=== PATIENT | male | born 1950 | race Caucasian/White ===

== ENCOUNTER → 2019-05-18 09:37 | Outpatient (CLI) | payer MEDICARE, OTHER, SELFPAY ==
[2019-05-18 10:34] LABS: Add Manual Diff / Slide Review NO; Basophils Absolute Auto 0 /uL (0-100); Basophils Percent Auto 0.8 % (0-2); Eosinophils Absolute Auto 300 /uL (0-450); Eosinophils Percent Auto 5.6 % (2-4); Hematocrit 42.4 % (41-53); Hemoglobin 14.3 g/dL (13.5-17.5); Lymphocytes Absolute Auto 1200 /uL (1100-4500); Lymphocytes Percent Auto 24.8 % (25-40); Mean Corpuscular HGB Conc 33.8 % (30-36); Mean Corpuscular Hemoglobin 27.5 PG (26-34); Mean Corpuscular Volume 81.3 fL (80-100); Monocytes Absolute Auto 500 /uL (0-900); Monocytes Percent Auto 9.9 % (3-14); Neutrophils Absolute Auto 2800 /uL (1500-7000); Neutrophils Percent Auto 58.9 % (50-75); Platelet Count 176 X10^3/uL (150-400); Red Blood Cell Count 5.22 X10^6/uL (4.5-5.9); Red Cell Distribution Width 15.4 % (11.6-14.8); White Blood Cell Count 4.8 X10^3/uL (4.5-11.0)
[2019-05-18 11:03] LABS: Alanine Aminotransferase 24 IU/L (<50); Albumin 4.2 g/dL (3.5-5.0); Albumin Globulin Ratio 1.4 (1.0-2.8); Alkaline Phosphatase 81 U/L (38-126); Aspartate Aminotransferase 25 IU/L (17-59); Bilirubin Total 0.8 mg/dL (0.2-1.3); Blood Urea Nitrogen 19 mg/dL (9-20); Calcium 9.4 mg/dL (8.4-10.2); Carbon Dioxide 31 mmol/L (22-32); Chloride 104 mmol/L (98-107); Cholesterol 161 mg/dL (140-199); Estimated Glomerular Filt Rate > 60.0 mL/min (>60); Globulin 3.1 g/dL (1.7-4.1); Glucose 102 mg/dL (80-110); HDL Cholesterol 41 mg/dL (40-60); HEMOLYSIS < 15 (0-50); LDL Cholesterol Calculated 90 mg/dL (<100); Potassium 5.2 mmol/L (3.4-5.1); Sodium 141 mmol/L (137-145); Total Protein 7.3 g/dL (6.3-8.2); Triglycerides 152 mg/dL (35-150)
[2019-05-18 11:31] LABS: Prostate Specific Antigen Scrn 0.478 ng/mL (0.1-4.0)
[2019-05-18 11:32] LABS: TSH w/ Reflex to FT4 3.77 uIU/mL (0.47-4.68)
== END ==
PROVIDERS: PCP Family Medicine; Visit Provider Family Medicine
DX: R94.6 Abnormal results of thyroid function studies (principal); Z12.5 Encounter for screening for malignant neoplasm of prostate; Z79.899 Other long term (current) drug therapy; E66.9 Obesity, unspecified
CPT/HCPCS: 36415; 80053; 80061; 84443; 85025; G0103

== ENCOUNTER → 2020-01-01 09:28 | Outpatient (CLI) | payer MEDICARE, OTHER, SELFPAY ==
[2020-01-02 07:39] LABS: COVID19 Sendout Not Detected (Not Detect)
== END ==
PROVIDERS: PCP Family Medicine; Visit Provider Nurse Practitioner
DX: Z11.59 Encounter for screening for other viral diseases (principal)
CPT/HCPCS: 87635

== ENCOUNTER 2020-01-04 06:37 | Day surgery (SDC) | payer MEDICARE, OTHER, SELFPAY ==
[2020-01-04 07:15] VITALS: BP 148/85; PULSE 65; RESP 16; TEMP 37; O2SAT 95
[2020-01-04 07:27] VITALS: BMI 35.9
[2020-01-04] MEDS: LACTATED RINGERS 1,000 ML 200 ML IV (07:27)
--- NOTE | 2020-01-04 07:38 | PM.HP.1 ---
History of Present Illness History of Present Illness Date Patient Seen: 01/04/20 Time Patient Seen: 07:38 Chief complaint: SDC Narrative: This is a 69-year-old man with personal history of colonoscopy over 10 years ago. For him the colonoscopy was normal. Some since then he has not had any melena, hematochezia, unexplained abdominal pain, unexplained weight loss. He denies any family history of colon polyps or colon cancer. He denies any other significant medical history. He does have an enlarged prostate, urinary frequency/urgency, seasonal allergies, and hyperlipidemia. He is on Lipitor. He has had multiple orthopedic procedures, and it hurt. He denies any other medical or surgical history. ROS: Urinary frequency/urgency. Thirteen system review is otherwise negative other than as mentioned below and in HPI. PE: GENERAL: Well groomed and cooperative. Appears stated age. Answers questions promptly and appropriately. Vital signs noted. HENT: Normocephalic, atraumatic. Hearing intact. EYES: Conjunctiva pink, sclera white, no periorbital swelling. CARDIOVASCULAR: Regular rate. No pedal edema. RESPIRATORY: Non-tachypneic, breathing comfortably on room air. GASTROINTESTINAL: Abdomen soft and non-distended GENITALURINARY: No flank tenderness. MUSCULOSKELETAL: Equal tone and mass bilaterally. SKIN: Warm, dry, soft, appropriate color for ethnicity. No other lesions, rashes, or wounds. NEURO: Alert and Oriented X 3. No gross sensory deficits, or cognitive issues. PSYCH: Appropriate affect and mood. Patient History Medical History Hyperlipidemia (Chronic) Insomnia, unspecified (Chronic Unknown) Obesity (Chronic Unknown) Obstructive sleep apnea of adult (Chronic ~04/2018) Sinusitis (Acute) Snoring (Chronic ~1976) Surgical History History of transurethral resection of prostate (Acute) Status post knee surgery Family & Social History Family History Brother Heart disease High cholesterol Father Heart disease High cholesterol Sister Heart disease High cholesterol Social History: household members spouse lives independently Yes caregiver/support person No Tobacco & Substance use: Smoking Status Never smoker alcohol intake former Substance Use Type does not use Meds Home Medications and Allergies Home Medications Medication Instructions Recorded Confirmed Type aspirin 81 mg tablet,delayed 81 mg PO DAILY 04/27/18 01/04/20 History release atorvastatin 40 mg tablet 40 mg PO HS #90 tab 05/29/19 01/04/20 Rx fluoxetine 20 mg capsule 20 mg PO QDAY #90 cap 05/29/19 01/04/20 Rx amoxicillin 875 mg-potassium 1 tab PO BID 10 Days #20 tab 12/26/19 01/04/20 Rx clavulanate 125 mg tablet fluticasone propionate 50 2 spray NASAL DAILY #18.2 ml 12/26/19 01/04/20 Rx mcg/actuation nasal spray,suspension Allergies Allergy/AdvReac Type Severity Reaction Status Date / Time No Known Drug Allergies Allergy Verified 12/26/19 15:40 Exam Vital Signs (past 8 hours): - 01/04/20 07:15 Temperature 98.6 F Pulse Rate 65 Respiratory Rate 16 Blood Pressure 148/85 H Pulse Oximetry 95 Oxygen Delivery Method Room Air Assessment & Plan Assessment and plan (1) At average risk for colon cancer: Status: Acute Assessment & Plan narrative: Risks and benefits of screening colonoscopy and possible polypectomy were discussed with the patient including risk of bleeding, perforation, need for additional procedures, risks of anesthesia. The patient desires to proceed with the colonoscopy procedure. COVID-19 COVID-19 status: Negative Result date/Date tested (Pos, Neg/Pending): 01/01/20 Time Spent With Patient Time with patient: 15-24 minutes Quality VTE Deep Vein Thrombosis/Pulmonary Embolism Present on Admission: No
--- NOTE | 2020-01-04 07:43 | P.OP.ENDO_ITS ---
Operative Date/Time/Diagnoses Date of procedure: 01/04/20 Time of procedure: 07:43 Pre-op diagnosis: Average risk for colon cancer Post-op diagnosis: other (Significant diverticulosis of the descending and sigmoid colon.) Procedure & Clinicians Study performed: Colonoscopy Procedural sedation performed by the endoscopist Indications: 69-year-old man with history of colonoscopy over 10 years ago which was reportedly normal. Due for screening colonoscopy. Surgeon: Birgit Peralta Procedure Notes SCOAP/Timeout: Performed Procedure in detail: The patient was brought to the room and placed in left lateral decubitus position with all bony prominences padded. A time-out was performed and then the patient was given procedural sedation starting with 4 mg of Versed and 100 mcg of fentanyl. A total of 5 mg of Versed and 150 micro g of fentanyl were given for the entire procedure. Vitals were monitored throughout the procedure and remained stable. Once adequately sedated, the procedure was begun. A rectal exam was performed revealing no abnormalities. The colonoscope was then introduced to the rectum and advanced to the cecum in the usual fashion. The cecum was identified by the appendiceal orifice, the mucosal tri- fold, and the ileocecal valve. The scope was then retracted while rotating side to side and examining each mucosal fold. Extensive diverticulosis with multiple false passages was seen in the descending and sigmoid colon. No signs of active diverticulitis were seen. At the conclusion of the procedure retroflexion was performed and small grade 1-2 internal hemorrhoids without stigmata of bleeding were seen. The scope was then withdrawn from the rectum the procedure was concluded. The patient tolerated the procedure well and was transferred to the PACU in stable condition. Scope withdrawal time: 8 Sedation minutes: 14 Findings: diverticulosis Specimen(s): none sent Complications: none Impression: Extensive diverticulosis. No polyps. Post-procedure Recommendations: Colonscopy in 10 years and Other recommendation (Use a fiber supplement such as Metamucil) Follow up: weeks Disposition: PACU
[2020-01-04] MEDS: MIDAZOLAM 5 MG/5 ML VIAL IV (07:46)
[2020-01-04] MEDS: fentaNYL 250 MCG/5 ML INJ IV (07:46)
[2020-01-04 08:08] VITALS: BP 121/63; PULSE 67; RESP 20; TEMP 35.9; O2SAT 95
[2020-01-04 08:12] VITALS: BP 132/80; PULSE 62; RESP 19; TEMP 36.1; O2SAT 93
[2020-01-04 08:17] VITALS: BP 137/73; PULSE 63; RESP 12; TEMP 36.1; O2SAT 94
[2020-01-04 08:22] VITALS: BP 135/65; PULSE 64; RESP 17; TEMP 36.1; O2SAT 94
[2020-01-04 08:39] VITALS: BP 139/78; PULSE 61; RESP 18; TEMP 35.9; O2SAT 93
== END 2020-01-04 08:42 | disposition home or self-care (01) ==
PROVIDERS: PCP Family Medicine; Referring Provider Family Medicine; Visit Provider Surgery
PROC: 0DJD8ZZ Inspection of Lower Intestinal Tract, Via Natural or Artificial Opening Endoscopic (ICD-10-PCS; CPT 45378; principal; 2020-01-04 07:45)
DX: Z12.11 Encounter for screening for malignant neoplasm of colon (principal); E78.5 Hyperlipidemia, unspecified; G47.33 Obstructive sleep apnea (adult) (pediatric); E66.9 Obesity, unspecified; N40.1 Benign prostatic hyperplasia with lower urinary tract symptoms; R35.0 Frequency of micturition; R39.15 Urgency of urination; K57.30 Diverticulosis of large intestine without perforation or abscess without bleeding; K64.0 First degree hemorrhoids
CPT/HCPCS: G0121; 99152; J2250; J3010

== ENCOUNTER → 2020-05-28 09:09 | Outpatient (CLI) | payer MEDICARE, OTHER, SELFPAY ==
[2020-05-28 10:22] LABS: Alanine Aminotransferase 29 IU/L (<50); Albumin 3.9 g/dL (3.5-5.0); Albumin Globulin Ratio 1.5 (1.0-2.8); Alkaline Phosphatase 71 U/L (38-126); Aspartate Aminotransferase 29 IU/L (17-59); BUN Creatinine Ratio 15.5 (6-22); Bilirubin Total 0.6 mg/dL (0.2-1.3); Blood Urea Nitrogen 13 mg/dL (9-20); Calcium 9.6 mg/dL (8.4-10.2); Carbon Dioxide 29 mmol/L (22-32); Chloride 106 mmol/L (98-107); Cholesterol 153 mg/dL (140-199); Estimated Glomerular Filt Rate > 60.0 mL/min (>60); Globulin 2.6 g/dL (1.7-4.1); Glucose 110 mg/dL (80-110); HDL Cholesterol 50 mg/dL (40-60); HEMOLYSIS < 15 (0-50); LDL Cholesterol Calculated 86 mg/dL (<100); Potassium 4.4 mmol/L (3.4-5.1); Sodium 139 mmol/L (137-145); Total Protein 6.5 g/dL (6.3-8.2); Triglycerides 85 mg/dL (35-150)
[2020-05-28 10:52] LABS: Prostate Specific Antigen Scrn 0.405 ng/mL (0.1-4.0)
== END ==
PROVIDERS: PCP Family Medicine; Referring Provider Family Medicine; Visit Provider Family Medicine
DX: E78.2 Mixed hyperlipidemia (principal); Z12.5 Encounter for screening for malignant neoplasm of prostate; E87.5 Hyperkalemia; N40.0 Benign prostatic hyperplasia without lower urinary tract symptoms
CPT/HCPCS: 36415; 80053; 80061; G0103

== ENCOUNTER → 2020-07-07 08:34 | Outpatient (CLI) | payer MEDICARE, OTHER, SELFPAY ==
[2020-07-07] MEDS: COVID-19 VACC, Ad26(JANSSEN)/PF 0.5 ML IM (08:41)
== END ==
PROVIDERS: PCP Family Medicine; Visit Provider Internal Medicine
DX: Z23 Encounter for immunization (principal)
CPT/HCPCS: 0031A; 91303

== ENCOUNTER → 2020-09-29 10:35 | Outpatient (CLI) | payer MEDICARE, OTHER, SELFPAY ==
--- NOTE | 2020-09-29 10:38 | DI.RAD.S_ITS ---
PROCEDURE: XR LUMBAR SPINE 2-3V INDICATIONS: Low back pain TECHNIQUE: 3 views of the lumbar spine were acquired. COMPARISON: None. FINDINGS: Bones: 5 [id number] vertebrae are present. There is normal bony alignment. No vertebral body compression fractures. No suspicious bony lesions. Mild leftward curvature of the thoracolumbar spine. Multiple anterior osteophytes are seen. Mild disc space narrowing at L5-S1. The remaining disc space heights are normal. Soft tissues: Overlying bowel gas pattern is normal. No suspicious soft tissue calcifications. IMPRESSION: 1. Mild multilevel degenerative changes. 2. Mild disc disease at L5-S1. Dictated by: Daniel Ferreira M.D. on 09/29/2020 at 11:47 Approved by: Daniel Ferreira M.D. on 09/29/2020 at 11:49
== END ==
PROVIDERS: PCP Family Medicine; Referring Provider Family Medicine; Visit Provider Family Medicine
DX: M54.5 Low back pain (principal); G89.29 Other chronic pain; M47.816 Spondylosis without myelopathy or radiculopathy, lumbar region; M51.9 Unspecified thoracic, thoracolumbar and lumbosacral intervertebral disc disorder
CPT/HCPCS: 72100

== ENCOUNTER → 2020-12-17 08:29 | Outpatient (CLI) | payer MEDICARE, OTHER, SELFPAY ==
[2020-12-17 11:59] LABS: COVID19 -Nasal RAPID POSITIVE (Negative)
== END ==
PROVIDERS: PCP Family Medicine; Visit Provider Physician Assistant
DX: U07.1 COVID-19 (principal)
CPT/HCPCS: 87635

== ENCOUNTER → 2021-01-06 09:10 | Outpatient (CLI) | payer MEDICARE, OTHER, SELFPAY ==
--- NOTE | 2021-01-06 09:12 | DI.US.S_ITS ---
PROCEDURE: US PERIPH VENOUS LOW EXTREM RT INDICATIONS: right upper leg pain TECHNIQUE: Real-time imaging, as well as color and pulse Doppler interrogation, were performed of the lower extremity deep veins from the inguinal ligament to the popliteal fossa. COMPARISON: None. FINDINGS: The common femoral, femoral and popliteal veins are normally compressible, and free of intraluminal thrombus. Color and pulse Doppler demonstrate normal phasic intraluminal flow. There is normal augmentation response to distal compression maneuver. Within the mid popliteal vein, is focal aneurysmal dilatation seen that measures 16 mm AP. IMPRESSION: Negative for deep venous thrombosis. 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 Dictated by: Aric Cottrell M.D. on 01/06/2021 at 9:01 Approved by: Aric Cottrell M.D. on 01/06/2021 at 9:02
== END ==
PROVIDERS: PCP Family Medicine; Referring Provider Nurse Practitioner Family; Visit Provider Nurse Practitioner Family
DX: M79.604 Pain in right leg (principal); I83.91 Asymptomatic varicose veins of right lower extremity
CPT/HCPCS: 93971

== ENCOUNTER 2021-01-08 10:54 | Emergency (ER) | payer MEDICARE, OTHER, SELFPAY ==
[2021-01-08] VITALS (15 sets, daily range): BP systolic 160–202; BP diastolic 72–88; PULSE 50–58; RESP 18; TEMP 36.4; O2SAT 95–97; BMI 35.9
--- NOTE | 2021-01-08 12:15 | DI.US.S_ITS ---
PROCEDURE: US PERIP VENOUS LOW EXTREM RT INDICATIONS: proximal right LE pain, popliteal vein aneurysm known TECHNIQUE: Real-time imaging, as well as color and pulse Doppler interrogation, were performed of the lower extremity deep veins from the inguinal ligament to the popliteal fossa. COMPARISON: [facility], , [facility] VENOUS LOW EXTREM RT, 01/06/2021, 9:41. FINDINGS: The common femoral, femoral and popliteal veins are normally compressible, and free of intraluminal thrombus. Color and pulse Doppler demonstrate normal phasic intraluminal flow. There is normal augmentation response to distal compression maneuver. Focal mild dilatation can be seen involving the popliteal vein, which is most likely related to a valve cusp. This appearance is similar to the prior examination. IMPRESSION: Negative for deep venous thrombosis. Dictated by: Aric Cottrell M.D. on 01/08/2021 at 12:04 Approved by: Aric Cottrell M.D. on 01/08/2021 at 12:05
--- NOTE | 2021-01-08 13:06 | ED.EXTPRO ---
HPI - Extremity Problem <Bayron Lund PA-C - Last Filed: 01/08/21 14:45> General Chief complaint: Extremity Problem,Nontraumatic Stated complaint: rt leg pain, got worse yesterday Time Seen by Provider: 01/08/21 11:24 Source: patient Mode of arrival: Ambulatory History of Present Illness HPI Narrative: Robby presents today with chief complaint of continued right upper leg pain that originally started at the beginning of this week. He reports that he has had continuous pain to his right upper leg that has prevented him from getting much sleep at night. He went to the walk-in clinic on Tuesday and an ultrasound was done. 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 Stat vascular consult was done and he was recommended to follow-up with an outpatient vascular surgeon. He has an appointment scheduled in February for his vascular surgeon follow-up. He denies any significant worsening of his symptoms, leg swelling, skin discoloration, chest pain, shortness of breath or any other acute concerns or complaints at this time. Ice And ibuprofen seem to give slight relief. Pain is worse with walking and moving his leg inward. Related Data Home Medications Medication Instructions Recorded Confirmed aspirin 81 mg tablet,delayed 81 mg PO DAILY 04/27/18 01/06/21 release (Adult Low Dose Aspirin) Previous Rx's Medication Instructions Recorded fluticasone propionate 50 2 spray NASAL DAILY #18.2 ml 12/26/19 mcg/actuation nasal spray,suspension (Flonase Allergy Relief) fluoxetine 20 mg capsule 20 mg PO QDAY #90 cap 07/23/20 atorvastatin 40 mg tablet See Rx Instructions .ROUTE 11/14/20 .COMPLEX #90 tab methocarbamol 500 mg tablet 500 mg PO BID #15 tab 01/08/21 hydrocodone 5 mg-acetaminophen 325 1 tab PO Q8H PRN #14 tab 01/10/21 mg tablet Allergies Allergy/AdvReac Type Severity Reaction Status Date / Time No Known Drug Allergies Allergy Verified 01/06/21 08:32 Review of Systems <Bayron Lund PA-C - Last Filed: 01/08/21 14:45> Review of Systems Narrative: As per HPI Patient History <Bayron Lund PA-C - Last Filed: 01/08/21 14:45> Medical History Chronic low back pain Hyperkalemia Hyperlipidemia Insomnia, unspecified (Unknown) Obesity (Unknown) Obstructive sleep apnea of adult (~04/2018) Sinusitis Snoring (~1976) Surgical History History of transurethral resection of prostate Status post knee surgery Family History Brother Heart disease High cholesterol Father Heart disease High cholesterol Sister Heart disease High cholesterol Social History marital status: details: to Tammie, lives in [place] household members: spouse lives independently: Yes caregiver/support person: No housing: house Smoking Status: Never smoker alcohol intake: former substance use type: does not use Smoking Status: Never smoker Substance Use Type: does not use Exam <Bayron Lund PA-C - Last Filed: 01/08/21 14:45> Narrative Exam Narrative: Exam Narrative: Const General: cooperative, healthy appearing, comfortable, no acute distress, well developed and well groomed Nutritional Appearance: Elevated BMI Orientation: alert and oriented x3 HENMT Head: normal to inspection and atraumatic Ears: hearing grossly normal bilaterally Nose: external nose normal and nares normal Face and sinus: normal facial exam Neck Neck: normal visual inspection and supple Resp Effort & Inspection: normal respiratory effort, able to speak in complete sentences, no audible wheezes, not labored, no nasal flaring and no respiratory distress Neuro General: alert, oriented x3, gait normal, tone normal and moves all extremities Cognition: normal cognition Speech: speech normal Gait: normal gait Extremities Lower extremities exposed. No pedal edema or calf tenderness. He has soft tissue tenderness on the proximal medial right leg with palpation. No overlying skin abnormalities. Decreased strength with abduction of right leg secondary to pain. Decreased range of motion of lateral movement of right leg at the hip secondary to pain. No bony tenderness noted. Psych Appearance: grossly normal and well kempt Mental Status: mental status grossly normal Speech and Movement: speech and movement normal Mood: congruent mood Affect: normal affect Initial Vital Signs Initial Vital Signs: Vital Signs Blood Pressure 202/86 H 01/08/21 11:18 <Kiera Sanchez DO - Last Filed: 01/11/21 15:27> Initial Vital Signs Initial Vital Signs: Vital Signs Blood Pressure 202/86 H 01/08/21 11:18 Scores <Bayron Lund PA-C - Last Filed: 01/08/21 14:45> Parth Criteria for DVT Active Cancer (Treatment within 6 months): No Bedridden recently >3 days or major surgery within 4 weeks: No Calf Swelling >3cm compared to other leg: No Collateral (nonvericose) superficial veins present: No Entire leg swollen: No Localized tenderness along the deep vein system: Yes Pitting edema, confined to symtomatic leg: No Paralysis, paresis, or recent plaster immobilization of ext: No Previously documented DVT: No Alternative dx to DVT as likely or more likely: Yes Parth criteria for DVT: -1 <Kiera Sanchez DO - Last Filed: 01/11/21 15:27> Parth Criteria for DVT Isrrael' criteria for DVT: -1 Course <VIRA Rosales Last Filed: 01/08/21 14:45> Orders Ordered: ED Orders 01/08/21 12:15 US periph venous low extrem rt Stat Vital Signs Vital signs: Vital Signs - 8 hr 01/08/21 11:18 01/08/21 11:19 01/08/21 11:21 Temperature 97.6 F Pulse Rate 53 L 58 L Respiratory Rate 18 Blood Pressure 202/86 H 202/86 H Pulse Oximetry 97 97 01/08/21 11:30 01/08/21 11:31 01/08/21 12:00 Temperature Pulse Rate 56 L 54 L 51 L Respiratory Rate Blood Pressure 193/79 H Pulse Oximetry 96 96 95 01/08/21 12:01 01/08/21 12:30 01/08/21 12:31 Temperature Pulse Rate 51 L 50 L 51 L Respiratory Rate Blood Pressure 161/72 H 179/88 H Pulse Oximetry 95 96 96 01/08/21 13:00 01/08/21 13:01 01/08/21 13:30 Temperature Pulse Rate 53 L 52 L 52 L Respiratory Rate Blood Pressure 173/82 H Pulse Oximetry 96 95 96 01/08/21 13:31 01/08/21 14:00 01/08/21 14:01 Temperature Pulse Rate 53 L 58 L 58 L Respiratory Rate Blood Pressure 160/76 H 162/74 H Pulse Oximetry 95 96 96 <Kiera Elisa MurphyayushDO - Last Filed: 01/11/21 15:27> Orders Ordered: ED Orders 01/08/21 12:15 US periph venous low extrem rt Stat Vital Signs Vital signs: Vital Signs - 8 hr 01/08/21 11:18 01/08/21 11:19 01/08/21 11:21 Temperature 97.6 F Pulse Rate 53 L 58 L Respiratory Rate 18 Blood Pressure 202/86 H 202/86 H Pulse Oximetry 97 97 01/08/21 11:30 01/08/21 11:31 01/08/21 12:00 Temperature Pulse Rate 56 L 54 L 51 L Respiratory Rate Blood Pressure 193/79 H Pulse Oximetry 96 96 95 01/08/21 12:01 01/08/21 12:30 01/08/21 12:31 Temperature Pulse Rate 51 L 50 L 51 L Respiratory Rate Blood Pressure 161/72 H 179/88 H Pulse Oximetry 95 96 96 01/08/21 13:00 01/08/21 13:01 01/08/21 13:30 Temperature Pulse Rate 53 L 52 L 52 L Respiratory Rate Blood Pressure 173/82 H Pulse Oximetry 96 95 96 01/08/21 13:31 01/08/21 14:00 01/08/21 14:01 Temperature Pulse Rate 53 L 58 L 58 L Respiratory Rate Blood Pressure 160/76 H 162/74 H Pulse Oximetry 95 96 96 MDM - Extremity (Nontraumatic) <Bayron Lund PA-C - Last Filed: 01/08/21 14:45> MDM Narrative Medical decision making narrative: Differential diagnosis includes vascular aneurysm, infection, DVT, muscle strain, neoplasm. No physical examination evidence to suggest infection. He does not have any palpable masses nor history of cancer to suggest neoplasm at this time. No bony tenderness. Ultrasound is reassuring for no DVT or aneurysm. He has strong pedal pulses bilaterally with good skin coloration. No physical exam evidence of arterial injury. Given his reproducible symptoms on leg adduction as well as abduction I suspect that his symptoms are due to a spasm/strain of 1 of his hip adductors. Stretching activities were discussed and recommended to the patient. He is encouraged to call his PCP today to schedule a follow-up appointment. Strict ER return precautions were discussed. Patient verbalizes understanding and agrees to plan and has no further concerns at this time. Thank you A [id number] system was used with the dictation of this note. Please disregard any spelling or grammatical errors. Discharge Plan Departure Patient Disposition: Home Clinical Impression: Acute pain of right lower extremity Activity Restrictions/Additional Instructions: It was very nice to me to this afternoon. The ultrasound done today suggest that the prior area that showed a possible venous aneurysm is actually slightly dilated valve in the popliteal vein. Given that your symptoms are worse with moving year leg laterally and the location of your symptoms, I think that this likely is a muscle spasm/strain. I would like you to apply heat to this area in addition to stretching. Please follow-up with your doctor by calling them today to schedule an appointment. I will prescribe some muscle relaxers which can be used in the evening to help relieve symptoms. You experience significant worsening pain, discoloration of your leg, fever, rash or any other acute concerns or complaints do not hesitate to return for re-evaluation. Thank you Bayron Lund PA-C Prescriptions: New methocarbamol 500 mg tablet 500 mg PO BID Qty: 15 RF: 0 No Action fluticasone propionate [Flonase Allergy Relief] 50 mcg/actuation spray,suspension 2 spray NASAL DAILY Qty: 18.2 RF: 0 fluoxetine 20 mg capsule 20 mg PO QDAY Qty: 90 RF: 3 atorvastatin 40 mg tablet See Rx Instructions .ROUTE .COMPLEX Qty: 90 RF: 0 hydrocodone-acetaminophen 5-325 mg tablet 1 tab PO Q8H PRN (Reason: pain) Qty: 14 RF: 0 aspirin [Adult Low Dose Aspirin] 81 mg tablet,delayed release (DR/EC) 81 mg PO DAILY RF: 0 Referrals: Shawn Recinos MD [Primary Care Provider] - <Kiera Sanchez DO - Last Filed: 01/11/21 15:27> Cosign ED Attending Fernandoature Attestation: I was immediately available in the department for consultation. Documentation has been reviewed.
== END 2021-01-08 14:29 | disposition home or self-care (01) ==
PROVIDERS: Emergency Provider Physician Assistant; PCP Family Medicine
DX: M79.604 Pain in right leg (principal)
CPT/HCPCS: 93971; 99283

== ENCOUNTER 2021-01-10 06:31 | Emergency (ER) | payer MEDICARE, OTHER, SELFPAY ==
[2021-01-10 06:38] VITALS: BP 228/106; PULSE 59; RESP 18; TEMP 36.3; O2SAT 98; BMI 35.9
[2021-01-10 07:01] VITALS: BP 178/85; PULSE 58; RESP 16; O2SAT 96
[2021-01-10 07:02] VITALS: PULSE 56; O2SAT 96
[2021-01-10 07:12] LABS: Add Manual Diff / Slide Review NO; Basophils Absolute Auto 0 /uL (0-100); Basophils Percent Auto 0.6 % (0-2); Eosinophils Absolute Auto 200 /uL (0-450); Hematocrit 40.2 % (41-53); Hemoglobin 13.3 g/dL (13.5-17.5); Lymphocytes Absolute Auto 1300 /uL (1100-4500); Lymphocytes Percent Auto 25.2 % (25-40); Mean Corpuscular HGB Conc 32.9 % (30-36); Mean Corpuscular Hemoglobin 27.1 PG (26-34); Mean Corpuscular Volume 82.2 fL (80-100); Monocytes Absolute Auto 500 /uL (0-900); Neutrophils Absolute Auto 3100 /uL (1500-7000); Neutrophils Percent Auto 60.2 % (50-75); Platelet Count 190 X10^3/uL (150-400); Red Blood Cell Count 4.89 X10^6/uL (4.5-5.9); Red Cell Distribution Width 15.6 % (11.6-14.8); White Blood Cell Count 5.2 X10^3/uL (4.5-11.0)
[2021-01-10 07:23] LABS: INR 1.1 (0.9-1.3); Prothrombin Time 12.6 SECONDS (10.1-12.7)
[2021-01-10 07:25] LABS: PTT Partial Thromboplastin Tim 34 SECONDS (26.4-36.2)
[2021-01-10 07:30] VITALS: PULSE 58; O2SAT 96
[2021-01-10 07:31] VITALS: BP 178/85; PULSE 59; O2SAT 96
[2021-01-10 07:38] LABS: Alanine Aminotransferase 27 IU/L (<50); Albumin 4.1 g/dL (3.5-5.0); Albumin Globulin Ratio 1.4 (1.0-2.8); Alkaline Phosphatase 75 U/L (38-126); Aspartate Aminotransferase 27 IU/L (17-59); BUN Creatinine Ratio 22.4 (6-22); Bilirubin Total 0.8 mg/dL (0.2-1.3); Blood Urea Nitrogen 19 mg/dL (9-20); Calcium 9.1 mg/dL (8.4-10.2); Carbon Dioxide 31 mmol/L (22-32); Chloride 106 mmol/L (98-107); Estimated Glomerular Filt Rate > 60.0 mL/min (>60); Glucose 117 mg/dL (80-110); HEMOLYSIS < 15 (0-50); Potassium 4.4 mmol/L (3.4-5.1); Sodium 139 mmol/L (137-145); Total Protein 7.1 g/dL (6.3-8.2)
--- NOTE | 2021-01-10 07:42 | ED_ITS ---
HPI - Extremity Problem General Chief complaint: Extremity Problem,Nontraumatic Stated complaint: states pain rt thigh Time Seen by Provider: 01/10/21 06:38 Source: patient Mode of arrival: Ambulatory Limitations: no limitations History of Present Illness HPI Narrative: Patient is a 70-year-old male who is here for evaluation of right-sided thigh discomfort. He states that approximately 1 week ago he started noticing pain in his right thigh. He does not know any specific incident that caused the discomfort. It has worsened since then. No fevers. Did not fall. Was seen at the walk-in clinic. Was told to take Tylenol/ibuprofen. Had an ultrasound performed which was concerning about a aneurysm in his popliteal vein. He had a referral placed for vascular surgery. Has an appointment or to schedule with them for next month. He also has an appointment scheduled for his primary doctor next week. His symptoms were not improving with these treatments so he came to the emergency department a couple days ago. Had a repeat ultrasound which showed that the area that was concerning for any aneurysm was most likely related to of valve. There is no signs of any DVT. He was given Robaxin. He states that he is having a difficult time sleeping at night because of the symptoms. No urinary symptoms. No change in bowel habits. No skin rashes. He states the symptoms come on mostly when he is standing. He describes the front of his right thigh as the location of the discomfort. He states it feels like it is a cramp that is about to start but never completely evolves. Does have back discomfort this is not new for him. Has no pain over the greater trochanter on the right. Has no abdominal discomfort. No testicular discomfort. Related Data Home Medications Medication Instructions Recorded Confirmed aspirin 81 mg tablet,delayed 81 mg PO DAILY 04/27/18 01/06/21 release (Adult Low Dose Aspirin) Previous Rx's Medication Instructions Recorded fluticasone propionate 50 2 spray NASAL DAILY #18.2 ml 12/26/19 mcg/actuation nasal spray,suspension (Flonase Allergy Relief) fluoxetine 20 mg capsule 20 mg PO QDAY #90 cap 07/23/20 atorvastatin 40 mg tablet See Rx Instructions .ROUTE 11/14/20 .COMPLEX #90 tab methocarbamol 500 mg tablet 500 mg PO BID #15 tab 01/08/21 hydrocodone 5 mg-acetaminophen 325 1 tab PO Q8H PRN #14 tab 01/10/21 mg tablet Allergies Allergy/AdvReac Type Severity Reaction Status Date / Time No Known Drug Allergies Allergy Verified 01/06/21 08:32 Review of Systems Constitutional Constitutional: Reports system reviewed and no additional complaints, except as documented Cardiovascular Cardiovascular: Reports system reviewed and no additional complaints, except as documented Respiratory Respiratory: Reports system reviewed and no additional complaints, except as documented Gastrointestinal Gastrointestinal: Reports as per HPI and Reports system reviewed and no additional complaints, except as documented Genitourinary Genitourinary: Reports system reviewed and no additional complaints, except as documented and Reports as per HPI Musculoskeletal Musculoskeletal: Reports system reviewed and no additional complaints, except as documented and Reports as per HPI Integumentary/Breasts Skin/Breast: Reports system reviewed and no additional complaints, except as documented Neurologic Neurologic: Reports system reviewed and no additional complaints, except as documented Endocrine Endocrine: Reports system reviewed and no additional complaints, except as documented Hematologic/Lymphatic On Anticoagulants: No Allergic/Immunologic Allergic/Immunologic: Reports system reviewed and no additional complaints, except as documented Patient History Medical History Chronic low back pain Hyperkalemia Hyperlipidemia Insomnia, unspecified (Unknown) Obesity (Unknown) Obstructive sleep apnea of adult (~04/2018) Sinusitis Snoring (~1976) Surgical History History of transurethral resection of prostate Status post knee surgery Family History Brother Heart disease High cholesterol Father Heart disease High cholesterol Sister Heart disease High cholesterol Social History marital status: details: gael Cho, lives in [place] household members: spouse lives independently: Yes caregiver/support person: No housing: house Smoking Status: Never smoker alcohol intake: former substance use type: does not use Smoking Status: Never smoker Substance Use Type: does not use Exam Initial Vital Signs Initial Vital Signs: Vital Signs Temperature 97.4 F L 01/10/21 06:38 Pulse Rate 59 L 01/10/21 06:38 Respiratory Rate 18 01/10/21 06:38 Blood Pressure 228/106 H 01/10/21 06:38 Pulse Oximetry 98 01/10/21 06:38 Const General: cooperative, healthy appearing and comfortable [facility] Head: normal to inspection and normocephalic Eyes General: appearance normal, both eyes and all related structures Neck Neck: normal visual inspection Resp Effort & Inspection: normal respiratory effort Cardio Palpation: normal PMI GI Inspection: normal to inspection Palpation: soft and No tender Skin General: no rashes or lesions noted Neuro General: patient alert, patient awake and patient oriented x3 Motor: muscle tone normal throughout Sensory Exam: no sensory deficits noted Extrem Other: Patient does not have any tenderness over the greater trochanter. He can internally and externally rotate his right hip without discomfort. Right knee is unremarkable. He can do a straight leg raise without discomfort. Can flex it his knee without discomfort. Has no tenderness to palpation over his anterior thigh. Psych Appearance: grossly normal and well kempt Course Orders Ordered: ED Orders 01/10/21 07:00 Complete Blood Count AUTO DIFF Stat Comprehensive Metabolic Panel Stat Partial Thromboplastin Time Stat Prothrombin Time INR Stat Vital Signs Vital signs: Vital Signs - 8 hr 01/10/21 06:38 01/10/21 07:01 01/10/21 07:02 Temperature 97.4 F L Pulse Rate 59 L 58 L 56 L Respiratory Rate 18 16 Blood Pressure 228/106 H 178/85 H Pulse Oximetry 98 96 96 01/10/21 07:30 01/10/21 07:31 Temperature Pulse Rate 58 L 59 L Respiratory Rate Blood Pressure 178/85 H Pulse Oximetry 96 96 MDM - Extremity (Nontraumatic) Lab Data Result diagrams: 01/10/21 07:00 01/10/21 07:00 Labs: Lab Results 01/10/21 01/10/21 01/10/21 Range/Units 07:00 07:00 07:00 WBC 5.2 (4.5-11.0) X10^3/uL RBC 4.89 (4.5-5.9) X10^6/uL Hgb 13.3 L (13.5-17.5) g/dL Hct 40.2 L (41-53) % MCV 82.2 (80-100) fL MCH 27.1 (26-34) PG MCHC 32.9 (30-36) % RDW 15.6 H (11.6-14.8) % Plt Count 190 (150-400) X10^3/uL Neut % (Auto) 60.2 (50-75) % Lymph % (Auto) 25.2 (25-40) % [place] % (Auto) 10.0 (3-14) % Eos % (Auto) 4.0 (2-4) % Baso % (Auto) 0.6 (0-2) % Neut # (Auto) 3100 (9245-7981) /uL Lymph # (Auto) 1300 (2929-1017) /uL [place] # (Auto) 500 (0-900) /uL Eos # (Auto) 200 (0-450) /uL Baso # (Auto) 0 (0-100) /uL PT 12.6 (10.1-12.7) SECONDS INR 1.1 (0.9-1.3) APTT 34 (26.4-36.2) SECONDS Sodium 139 (137-145) mmol/L Potassium 4.4 (3.4-5.1) mmol/L Chloride 106 (98-107) mmol/L Carbon Dioxide 31 (22-32) mmol/L BUN 19 (9-20) mg/dL Creatinine 0.85 (0.66-1.25) mg/dL Estimated GFR > 60.0 (>60) mL/min BUN/Creatinine Ratio 22.4 H (6-22) Glucose 117 H (80-110) mg/dL Calcium 9.1 (8.4-10.2) mg/dL Total Bilirubin 0.8 (0.2-1.3) mg/dL AST 27 (17-59) IU/L ALT 27 (<50) IU/L Alkaline Phosphatase 75 (38-126) U/L Total Protein 7.1 (6.3-8.2) g/dL Albumin 4.1 (3.5-5.0) g/dL Globulin 3.0 (1.7-4.1) g/dL Albumin/Globulin Ratio 1.4 (1.0-2.8) MDM Narrative Medical decision making narrative: Patient has had 2 ultrasounds this right lower extremity both of which did not show any DVT. The initial 1 was concerning about a small aneurysm however the follow-up ultrasound shows that this is most likely related to the valves in the veins. Given the location of this finding and where he is having symptoms today I feel that even if it is an aneurysm is unlikely the cause of his discomfort. He has no skin changes over t he area that would make me concern for zoster. Considered other etiologies such as fractures however he has no specific trauma and is able to ambulate. I feel that any x-rays for now would not be helpful. Considered testicular issues to include torsion however he has no testicular pain. Considered intra-abdominal issue such as appendicitis/femoral hernias however his exam is not consistent with that. I feel that a CT scan would not be helpful for evaluation currently as well. Low suspicion for infection. I do have low concern for a muscle strain as he can flex and extend and internally and externally rotate his hip and also flexed and extended his knee and this does not reproduce his symptoms. He states that his symptoms occur when he stands. He also states that when he does sleep for a short amount of time when he wakes up he does have a burning sensation. He does have longstanding history of lower back pain. Given his presentation today have a higher concern that this may be a radicular issue. Where he is having symptoms does correspond with the L2/L3 nerve distribution. His location is symptoms is over the anterior femoral cutaneous nerve in the lateral femoral cutaneous nerve distributions. He does have a follow-up with his primary doctor next week. Informed him that he needed to talk to his primary doctor about the indications for an MRI. Will try to treat symptoms currently. Was given return precautions. He expressed understanding and agreement. Discharge Plan Departure Patient Disposition: Home Clinical Impression: Right leg pain Instructions: DI for Leg Pain Activity Restrictions/Additional Instructions: Based on the workup that you have had up to this point in your exam today I have a higher concern that your symptoms may be related to lower back issues rather than thigh issues. I recommend that you keep your appointment with your primary doctor next week. Discussed with your primary doctor about the indication for an MRI. Return to the emergency department for any new or worsening symptoms Prescriptions: New hydrocodone-acetaminophen 5-325 mg tablet 1 tab PO Q8H PRN (Reason: pain) Qty: 14 RF: 0 No Action fluticasone propionate [Flonase Allergy Relief] 50 mcg/actuation spray,suspension 2 spray NASAL DAILY Qty: 18.2 RF: 0 fluoxetine 20 mg capsule 20 mg PO QDAY Qty: 90 RF: 3 atorvastatin 40 mg tablet See Rx Instructions .ROUTE .COMPLEX Qty: 90 RF: 0 methocarbamol 500 mg tablet 500 mg PO BID Qty: 15 RF: 0 aspirin [Adult Low Dose Aspirin] 81 mg tablet,delayed release (DR/EC) 81 mg PO DAILY RF: 0 Referrals: Shawn Recinos MD [Primary Care Provider] -
[2021-01-10 08:48] VITALS: BP 176/86; PULSE 57; RESP 20; O2SAT 99
== END 2021-01-10 08:49 | disposition home or self-care (01) ==
PROVIDERS: Emergency Medicine; Emergency Provider Emergency Medicine; PCP Family Medicine
DX: M79.604 Pain in right leg (principal)
CPT/HCPCS: 36415; 80053; 85025; 85610; 85730; 99283; 99284

== ENCOUNTER → 2021-01-14 16:07 | Outpatient (CLI) | payer MEDICARE, OTHER, SELFPAY ==
--- NOTE | 2021-01-14 16:09 | DI.MRI.S_ITS ---
PROCEDURE: MR LUMBAR SPINE WO CON INDICATIONS: low back pain w/ radiculopathy, not improved w/ conserv mgmt TECHNIQUE: Noncontrast sagittal T1 spin echo and T2 fast echo, sagittal STIR, axial T1 and T2 fast spin echo through the lumbar spine. In cases with scoliosis, additional coronal T2 fast spin echo may be performed. COMPARISON: [facility], CR, XR LUMBAR SPINE 2-3V, 09/29/2020, 10:46. FINDINGS: Image quality: Excellent. Alignment and Curvature: There is trace retrolisthesis of L2 on L3, L3 on L4. Bone Marrow: Marrow is of normal overall signal. Schmorl's node with reactive marrow edema is present along the inferior endplates of L1 and L2 and to a lesser degree superior endplate of L2. No acute vertebral body compression fractures. Spinal Cord: Conus medullaris terminates at the L1-L2 level. Visualized cord demonstrates normal signal and size. Paraspinous Soft Tissues: No paravertebral masses. Discs: [id number] desiccation is present throughout the lumbar spine most severe at L5-S1. L1-L2: No disc bulge, spinal stenosis or foraminal narrowing. Facet and ligamentum flavum hypertrophy are present. L2-L3: No disc bulge, spinal stenosis or foraminal narrowing. Facet and ligamentum flavum hypertrophy are present. L3-L4: Minimal disc bulge without spinal stenosis. Mild right foraminal narrowing with facet and ligamentum flavum hypertrophy. L4-L5: Mild disc bulge including a left asymmetric foraminal component causing mild compromise of the left lateral recess. No foraminal narrowing. Facet and ligamentum flavum hypertrophy are present. L5-S1: Mild disc bulge without spinal stenosis. [id number] bilateral foraminal narrowing with facet and ligamentum flavum hypertrophy. IMPRESSION: 1. Foraminal narrowing most notable at L5-S1 secondary to facet/ligamentum flavum arthropathy. 2. No spinal stenosis. Dictated by: Roxanna Ruiz M.D. on 01/14/2021 at 20:43 Approved by: Roxanna Ruiz M.D. on 01/14/2021 at 20:46
== END ==
PROVIDERS: PCP Family Medicine; Referring Provider Family Medicine; Visit Provider Family Medicine
DX: M79.604 Pain in right leg (principal); M54.5 Low back pain; G89.29 Other chronic pain; M48.061 Spinal stenosis, lumbar region without neurogenic claudication
CPT/HCPCS: 72148

== ENCOUNTER 2021-08-10 13:04 | Emergency (ER) | payer MEDICARE, OTHER, SELFPAY ==
[2021-08-10 13:09] VITALS: BP 146/76; PULSE 85; RESP 20; TEMP 36.9; O2SAT 94
--- NOTE | 2021-08-10 13:13 | DI.RAD.S_ITS ---
PROCEDURE: XR RIBS LT MIN 3V W CXR1V INDICATIONS: fall TECHNIQUE: 4 views of the left ribs were acquired, along with a single view chest. COMPARISON: None. FINDINGS: Surgical changes and devices: None. Bones and chest wall: Minimally displaced fracture involving left lateral 9th rib is seen. No suspicious bony lesions. Overlying soft tissues appear unremarkable. Lungs and pleura: No pleural effusions or pneumothorax. Elevation of right hemidiaphragm is seen. No focal infiltrate. Mediastinum: Mediastinal contours appear normal. Heart size is normal. IMPRESSION: Minimally displaced fracture involving left lateral 9th rib. No focal infiltrate, pleural effusion or pneumothorax. Elevation of right hemidiaphragm. Dictated by: Erlin Castillo M.D. on 08/10/2021 at 13:46 Approved by: Erlin Castillo M.D. on 08/10/2021 at 13:51
--- NOTE | 2021-08-10 13:13 | DI.RAD.S_ITS ---
PROCEDURE: XR SHOULDER LT MIN 2V INDICATIONS: fall TECHNIQUE: 3 views of the shoulder were acquired. COMPARISON: [facility], , SHOULDER MINIMUM 2VIEW RIGHT, 11/03/2007, 13:32. FINDINGS: Bones: Possible postsurgical widening of acromioclavicular joint, suggest clinical correlation. No fractures or dislocations. No suspicious bony lesions. Visualized ribs appear intact. Soft tissues: No suspicious soft tissue calcifications. IMPRESSION: No acute shoulder fracture or dislocation. Possible postsurgical widening of acromioclavicular joint suggest clinical correlation. Dictated by: Erlin Castillo M.D. on 08/10/2021 at 13:45 Approved by: Erlin Castillo M.D. on 08/10/2021 at 13:46
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
[2021-08-10] MEDS: LIDO 1%/SOD BICARB 8.4% (10ML) 10 ML SYRINGE INJ (17:35)
[2021-08-10] MEDS: OXYCODONE/ACETAMINOPHEN 5/325 TABLET 1 TAB PO (17:35)
[2021-08-10] MEDS: TET,DIPH,PERTUSS(ACELL),VAC/PF 0.5 ML SYRINGE IM (17:36)
[2021-08-10] MEDS: KETOROLAC 30 MG/ML VIAL 15 MG IM (17:36)
[2021-08-10 19:25] VITALS: BP 125/75; PULSE 77; RESP 18; O2SAT 94
== END 2021-08-10 19:27 | disposition home or self-care (01) ==
PROVIDERS: Emergency Provider Nurse Practitioner Critical Care Medicine; PCP Family Medicine
DX: S01.312A Laceration without foreign body of left ear, initial encounter (principal); S22.32XA Fracture of one rib, left side, initial encounter for closed fracture; M25.512 Pain in left shoulder; V18.0XXA Pedal cycle driver injured in noncollision transport accident in nontraffic accident, initial encounter; Y93.55 Activity, bike riding; Z23 Encounter for immunization
CPT/HCPCS: 13152; 71101; 73030; 90471; 96372; 99284; 90715; J1885

== ENCOUNTER → 2021-08-13 11:07 | Outpatient (CLI) | payer MEDICARE, OTHER, SELFPAY ==
--- NOTE | 2021-08-13 11:09 | DI.RAD.S_ITS ---
PROCEDURE: XR HAND RT MIN 3V INDICATIONS: Swelling and discomfort right 5th metacarpal TECHNIQUE: 3 views of the hand(s) acquired. COMPARISON: [facility], , HAND 3V LEFT, 11/01/2007, 11:07. FINDINGS: Bones: No fractures or dislocations. Carpal bones are normally aligned. No suspicious bony lesions. Soft tissues: No suspicious soft tissue calcifications. IMPRESSION: No osseous lesion. If symptoms and/or clinical suspicion for pathology persists, further assessment with repeat radiographs (7-10 days) or advanced imaging (e.g. CT, MRI or bone scan) should be considered. Dictated by: Madhavi Schaffer MD, PhD on 08/13/2021 at 15:36 Approved by: Madhavi Schaffer MD, PhD on 08/13/2021 at 15:42
== END ==
PROVIDERS: PCP Family Medicine; Referring Provider Family Medicine; Visit Provider Family Medicine
DX: M79.641 Pain in right hand (principal)
CPT/HCPCS: 73130

== ENCOUNTER → 2021-08-18 09:34 | Outpatient (CLI) | payer MEDICARE, OTHER, SELFPAY ==
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
== END ==
PROVIDERS: PCP Family Medicine; Referring Provider Family Medicine; Visit Provider Family Medicine
DX: M25.562 Pain in left knee (principal)
CPT/HCPCS: 73562

== ENCOUNTER → 2021-10-30 09:48 | Outpatient (CLI) | payer MEDICARE, OTHER, SELFPAY ==
[2021-10-30 10:13] LABS: Add Manual Diff / Slide Review NO; Basophils Absolute Auto 0 /uL (0-100); Basophils Percent Auto 0.8 % (0-2); Eosinophils Absolute Auto 200 /uL (0-450); Eosinophils Percent Auto 3.9 % (2-4); Hematocrit 42.4 % (41-53); Hemoglobin 14.1 g/dL (13.5-17.5); Lymphocytes Absolute Auto 1200 /uL (1100-4500); Lymphocytes Percent Auto 24.4 % (25-40); Mean Corpuscular HGB Conc 33.3 % (30-36); Mean Corpuscular Volume 80.8 fL (80-100); Monocytes Absolute Auto 500 /uL (0-900); Monocytes Percent Auto 11.1 % (3-14); Neutrophils Absolute Auto 2900 /uL (1500-7000); Neutrophils Percent Auto 59.8 % (50-75); Platelet Count 188 X10^3/uL (150-400); Red Blood Cell Count 5.25 X10^6/uL (4.5-5.9); Red Cell Distribution Width 15.8 % (11.6-14.8); White Blood Cell Count 4.8 X10^3/uL (4.5-11.0)
[2021-10-30 10:22] LABS: Alanine Aminotransferase 26 IU/L (<50); Albumin 4.5 g/dL (3.5-5.0); Albumin Globulin Ratio 1.5 (1.0-2.8); Alkaline Phosphatase 83 U/L (38-126); Aspartate Aminotransferase 28 IU/L (17-59); BUN Creatinine Ratio 19.8 (6-22); Bilirubin Total 0.9 mg/dL (0.2-1.3); Blood Urea Nitrogen 20 mg/dL (9-20); Calcium 8.7 mg/dL (8.4-10.2); Carbon Dioxide 25 mmol/L (22-32); Chloride 104 mmol/L (98-107); Cholesterol 175 mg/dL (140-199); Estimated Glomerular Filt Rate > 60 mL/min (>60); Globulin 3.1 g/dL (1.7-4.1); Glucose 115 mg/dL (80-110); HDL Cholesterol 49 mg/dL (40-60); HEMOLYSIS < 15 (0-50); LDL Cholesterol Calculated 105 mg/dL (<100); Potassium 4.4 mmol/L (3.4-5.1); Sodium 139 mmol/L (137-145); Total Protein 7.6 g/dL (6.3-8.2); Triglycerides 104 mg/dL (35-150)
[2021-10-30 10:50] LABS: Prostate Specific Antigen Scrn 0.488 ng/mL (0.1-4.0)
[2021-10-30 12:19] LABS: Creatinine Urine Random 211.7 mg/dL
[2021-10-30 12:24] LABS: Microalbumi Creatinin Ratio Ur 5.6 ug/mg CR (<30); Microalbumin Urine Random 1.2 mg/dL (0-1.6)
== END ==
PROVIDERS: PCP Family Medicine; Referring Provider Family Medicine; Visit Provider Family Medicine
DX: E78.2 Mixed hyperlipidemia (principal); G89.29 Other chronic pain; G47.33 Obstructive sleep apnea (adult) (pediatric); M54.50 Low back pain, unspecified; R03.0 Elevated blood-pressure reading, without diagnosis of hypertension; Z12.5 Encounter for screening for malignant neoplasm of prostate
CPT/HCPCS: 36415; 80053; 80061; 82043; 82570; 85025; G0103

== ENCOUNTER → 2022-08-03 13:46 | Outpatient (CLI) | payer MEDICARE, OTHER, SELFPAY ==
--- NOTE | 2022-08-03 | DI.RAD.S_ITS ---
PROCEDURE: XR WRIST RT MIN 3V INDICATIONS: LEFT SHOULDER PAIN/FALL 1 YEAR AGO TECHNIQUE: 4 views of the wrist were acquired. COMPARISON: None. FINDINGS: Bones: No fractures or dislocations. No suspicious bony lesions. Radiocarpal osteoarthritic degenerative changes. Scaphoid view: Scaphoid is intact. Soft tissues: No suspicious soft tissue calcifications. IMPRESSION: No fracture. No acute osseous lesion. If symptoms and/or clinical suspicion for pathology persists, further assessment with repeat radiographs (7-10 days) or advanced imaging (e.g. CT, MRI or bone scan) should be considered. Dictated by: Madhavi Schaffer MD, PhD on 08/03/2022 at 14:59 Approved by: Madhavi Schaffer MD, PhD on 08/03/2022 at 14:59
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
== END ==
PROVIDERS: PCP Family Medicine; Referring Provider Family Medicine; Visit Provider Family Medicine
DX: M25.512 Pain in left shoulder (principal); M25.531 Pain in right wrist
CPT/HCPCS: 73030; 73110

== ENCOUNTER → 2022-08-06 09:36 | Outpatient (CLI) | payer MEDICARE, OTHER, SELFPAY ==
[2022-08-06 10:27] LABS: Add Manual Diff / Slide Review NO; Basophils Absolute Auto 0 /uL (0-100); Basophils Percent Auto 0.9 % (0-2); Eosinophils Absolute Auto 200 /uL (0-450); Eosinophils Percent Auto 4.7 % (2-4); Hematocrit 41.3 % (41-53); Hemoglobin 13.7 g/dL (13.5-17.5); Lymphocytes Absolute Auto 1000 /uL (1100-4500); Lymphocytes Percent Auto 28.1 % (25-40); Mean Corpuscular HGB Conc 33.2 % (30-36); Mean Corpuscular Volume 81.3 fL (80-100); Monocytes Absolute Auto 500 /uL (0-900); Neutrophils Absolute Auto 2000 /uL (1500-7000); Neutrophils Percent Auto 53.3 % (50-75); Platelet Count 187 X10^3/uL (150-400); Red Blood Cell Count 5.08 X10^6/uL (4.5-5.9); Red Cell Distribution Width 15.7 % (11.6-14.8); White Blood Cell Count 3.7 X10^3/uL (4.5-11.0)
[2022-08-06 10:48] LABS: Alanine Aminotransferase 29 IU/L (<50); Albumin 3.9 g/dL (3.5-5.0); Albumin Globulin Ratio 1.2 (1.0-2.8); Alkaline Phosphatase 76 U/L (38-126); Aspartate Aminotransferase 29 IU/L (17-59); BUN Creatinine Ratio 15.7 (6-22); Bilirubin Total 0.8 mg/dL (0.2-1.3); Blood Urea Nitrogen 14 mg/dL (9-20); Carbon Dioxide 30 mmol/L (22-32); Chloride 105 mmol/L (98-107); Cholesterol 161 mg/dL (140-199); Estimated Glomerular Filt Rate > 60 mL/min (>60); Globulin 3.3 g/dL (1.7-4.1); Glucose 108 mg/dL (80-110); HDL Cholesterol 42 mg/dL (40-60); HEMOLYSIS < 15 (0-50); LDL Cholesterol Calculated 94 mg/dL (<100); Potassium 4.3 mmol/L (3.4-5.1); Sodium 140 mmol/L (137-145); Total Protein 7.2 g/dL (6.3-8.2); Triglycerides 126 mg/dL (35-150)
[2022-08-06 11:15] LABS: Prostate Specific Antigen Scrn 0.428 ng/mL (0.1-4.0)
[2022-08-06 11:16] LABS: TSH w/ Reflex to FT4 4.04 uIU/mL (0.47-4.68)
[2022-08-06 11:42] LABS: Creatinine Urine Random 119.4 mg/dL
[2022-08-06 11:46] LABS: Microalbumi Creatinin Ratio Ur 6.7 ug/mg CR (<30); Microalbumin Urine Random 0.8 mg/dL (0-1.6)
== END ==
PROVIDERS: PCP Family Medicine; Referring Provider Family Medicine; Visit Provider Family Medicine
DX: E78.2 Mixed hyperlipidemia (principal); Z12.5 Encounter for screening for malignant neoplasm of prostate; E87.5 Hyperkalemia; M47.816 Spondylosis without myelopathy or radiculopathy, lumbar region; R94.6 Abnormal results of thyroid function studies; N40.0 Benign prostatic hyperplasia without lower urinary tract symptoms
CPT/HCPCS: 36415; 80053; 80061; 82043; 82570; 84443; 85025; G0103

== ENCOUNTER → 2022-09-01 16:04 | Outpatient (CLI) | payer MEDICARE, OTHER, SELFPAY ==
--- NOTE | 2022-09-01 16:07 | DI.MRI.S_ITS ---
PROCEDURE: MR SHOULDER LT WO CON INDICATIONS: Contusion of left shoulder, initial encounter TECHNIQUE: Noncontrast oblique coronal T2 fast spin echo with fat saturation, oblique sagittal T1 spin echo and T2 fast spin echo with fat saturation, axial T1 spin echo and T2 fast spin echo with fat saturation through the shoulder. COMPARISON: [facility], CR, XR SHOULDER LT MIN 2V, 08/03/2022, 14:12. FINDINGS: Image quality: Excellent. Rotator cuff: Moderate grade articular and bursal surface partial thickness tear involving distal supraspinatus at its insertion on the humeral head is seen extending to musculotendinous junction. Distal infraspinatus tendinosis is seen. Low-grade intrasubstance partial-thickness tear involving distal subscapularis is also noted. No full-thickness rotator cuff tendon rupture. Sagittal images demonstrate mild supraspinatus muscle atrophy. Bones and bursae: No bone marrow contusions or fractures. There is suggestion of prior postsurgical widening of acromioclavicular joint. Small to moderate amount of subacromial subdeltoid bursal fluid is seen, no gross loose bodies. Capsule and soft tissues: There is fraying of superior anterior labrum with signal abnormality at 1-2 o'clock position suggestive of superior anterior labral tear. Similar signal abnormality and contour irregularity involving anterior inferior labrum at 5 to 6 o'clock position is also seen. The long head of the biceps tendon demonstrates normal location and morphology. The rotator interval appears normal, without fibrosis. The coracohumeral ligament is normal in thickness. IMPRESSION: 1. Moderate grade articular and bursal surface partial thickness tear involving distal supraspinatus extending to musculotendinous junction. Distal infraspinatus tendinosis. Low-grade intrasubstance partial-thickness tear involving distal subscapularis. No full-thickness rotator cuff tendon rupture. Mild supraspinatus muscle atrophy. 2. Possible postsurgical widening of acromioclavicular joint, suggest clinical correlation. No marrow edema. No fracture or dislocation. 3. Finding is suggestive of superior anterior labral tear at 1 to 2 o'clock position. There is also suggestion of anterior-inferior labral tear at 5 to 6 o'clock position. Dictated by: Erlin Castillo M.D. on 09/01/2022 at 17:00 Approved by: Erlin Castillo M.D. on 09/01/2022 at 17:07
== END ==
PROVIDERS: PCP Family Medicine; Referring Provider Orthopaedic Surgery; Visit Provider Orthopaedic Surgery
DX: S46.012A Strain of muscle(s) and tendon(s) of the rotator cuff of left shoulder, initial encounter (principal); S40.012A Contusion of left shoulder, initial encounter
CPT/HCPCS: 73221

== ENCOUNTER → 2023-06-30 09:19 | Outpatient (CLI) | payer MEDICARE, OTHER, SELFPAY ==
--- NOTE | 2023-06-30 09:20 | DI.RAD.S_ITS ---
PROCEDURE: XR CERVICAL SPINE 2V OR 3V INDICATIONS: pain to left side x 1 mo TECHNIQUE: 4 view(s) of the cervical spine were acquired. COMPARISON: None. FINDINGS: Bones: No fractures or dislocations to the T1 level. The lateral masses of C1 appear intact on the odontoid view. No suspicious bony lesions. Moderate to severe disc height loss at C4-5, C5-6, C6-7. Mild disc height loss at remaining levels. Diffuse facet arthrosis, most prominent at C5-6. Soft tissues: No prevertebral soft tissue swelling. IMPRESSION: Moderate to severe, multilevel degenerative disc disease and facet arthrosis. Dictated by: Kaushik Warner M.D. on 06/30/2023 at 12:27 Approved by: Kaushik Warner M.D. on 06/30/2023 at 12:29
== END ==
LOC: RAD 09:20
PROVIDERS: PCP Family Medicine; Referring Provider Physician Assistant; Visit Provider Physician Assistant
DX: M47.812 Spondylosis without myelopathy or radiculopathy, cervical region (principal); M50.321 Other cervical disc degeneration at C4-C5 level
CPT/HCPCS: 72040

== ENCOUNTER → 2024-04-26 12:34 | Outpatient (CLI) | payer MEDICARE, OTHER, SELFPAY ==
--- NOTE | 2024-04-26 12:38 | DI.RAD.S_ITS ---
PROCEDURE: XR HAND LT MIN 3V INDICATIONS: Left-hand swelling TECHNIQUE: 3 views of the hand(s) acquired. COMPARISON: [facility], CR, XR HAND RT MIN 3V, 08/13/2021, 11:28. FINDINGS: Bones: No fractures or dislocations. Carpal bones are normally aligned. No suspicious bony lesions. Chondrocalcinosis of the TFCC. Soft tissues: No suspicious soft tissue calcifications. IMPRESSION: No acute bony abnormality. Chondrocalcinosis, which can be seen in the setting of CPPD, aging, and parathyroid disorders. Dictated by: Kaushik Warner M.D. on 04/26/2024 at 15:25 Approved by: Kaushik Warner M.D. on 04/26/2024 at 15:26
--- NOTE | 2024-04-26 12:38 | DI.US.S_ITS ---
PROCEDURE: US PERIPH VENOUS UP EXTREM LT INDICATIONS: Swollen left-hand TECHNIQUE: Real-time imaging, as well as color and pulse Doppler interrogation, was performed of the upper extremity deep veins from the inferior neck to the antecubital fossa. COMPARISON: None. FINDINGS: The internal jugular vein, visualized portions of the subclavian vein, axillary, and brachial veins are free of intraluminal thrombus. Where physically possible, the veins are normally compressible. Color and pulse Doppler demonstrate normal intraluminal flow, with expected phasicity and pulsatility. Additional scanning of the cephalic and basilic veins of the superficial system demonstrates normal compressibility, without thrombus. IMPRESSION: No findings of left upper extremity deep venous thrombosis can be seen. Dictated by: Balwinder Quintanilla M.D. on 04/26/2024 at 13:15 Approved by: Balwinder Quintanilla M.D. on 04/26/2024 at 13:17
== END ==
LOC: US 12:37
PROVIDERS: PCP Family Medicine; Referring Provider Nurse Practitioner Family; Visit Provider Nurse Practitioner Family
DX: M11.242 Other chondrocalcinosis, left hand (principal); M79.89 Other specified soft tissue disorders
CPT/HCPCS: 73130; 93971

== ENCOUNTER → 2024-08-15 12:45 | Outpatient (CLI) | payer MEDICARE, OTHER, SELFPAY ==
[2024-08-15 13:20] LABS: Add Manual Diff / Slide Review NO; Basophils Absolute Auto 100 /uL (0-100); Basophils Percent Auto 0.9 % (0-2); Eosinophils Absolute Auto 100 /uL (0-450); Eosinophils Percent Auto 2.6 % (2-4); Hematocrit 43.6 % (41-53); Hemoglobin 14.2 g/dL (13.5-17.5); Lymphocytes Absolute Auto 1400 /uL (1100-4500); Lymphocytes Percent Auto 24.2 % (25-40); Mean Corpuscular HGB Conc 32.7 % (30-36); Mean Corpuscular Hemoglobin 26.9 PG (26-34); Mean Corpuscular Volume 82.2 fL (80-100); Monocytes Absolute Auto 500 /uL (0-900); Monocytes Percent Auto 9.7 % (3-14); Neutrophils Absolute Auto 3500 /uL (1500-7000); Neutrophils Percent Auto 62.6 % (50-75); Platelet Count 200 X10^3/uL (150-400); White Blood Cell Count 5.6 X10^3/uL (4.5-11.0)
[2024-08-15 13:43] LABS: Alanine Aminotransferase 21 IU/L (<50); Albumin 4.5 g/dL (3.5-5.0); Albumin Globulin Ratio 1.6 (1.0-2.8); Alkaline Phosphatase 80 U/L (38-126); Aspartate Aminotransferase 25 IU/L (17-59); BUN Creatinine Ratio 17.9 (6-22); Blood Urea Nitrogen 17 mg/dL (9-20); Calcium 9.6 mg/dL (8.4-10.2); Carbon Dioxide 30 mmol/L (22-32); Chloride 102 mmol/L (98-107); Cholesterol 173 mg/dL (140-199); Estimated Glomerular Filt Rate > 60 mL/min (>60); Globulin 2.9 g/dL (1.7-4.1); Glucose 100 mg/dL (70-99); HDL Cholesterol 45 mg/dL (40-60); HEMOLYSIS < 15 (0-50); LDL Cholesterol Calculated 105 mg/dL (<100); Potassium 5.3 mmol/L (3.4-5.1); Sodium 139 mmol/L (137-145); Total Protein 7.4 g/dL (6.3-8.2); Triglycerides 115 mg/dL (35-150)
[2024-08-15 14:10] LABS: Prostate Specific Antigen Scrn 0.536 ng/mL (0.1-4.0)
[2024-08-15 14:11] LABS: TSH w/ Reflex to FT4 2.91 uIU/mL (0.47-4.68)
[2024-08-15 15:14] LABS: Creatinine Urine Random 38.37 mg/dL
[2024-08-15 15:23] LABS: Microalbumin Urine Random < 0.6 mg/dL (0-1.6)
[2024-08-16 15:28] LABS: Hep C Virus Ab w/Reflex Quant NEGATIVE s/c (NEGATIVE)
== END ==
PROVIDERS: PCP Family Medicine; Referring Provider Family Medicine; Visit Provider Family Medicine
DX: M47.816 Spondylosis without myelopathy or radiculopathy, lumbar region (principal); E78.2 Mixed hyperlipidemia; Z12.5 Encounter for screening for malignant neoplasm of prostate; N40.0 Benign prostatic hyperplasia without lower urinary tract symptoms; G89.29 Other chronic pain; R94.6 Abnormal results of thyroid function studies; F32.9 Major depressive disorder, single episode, unspecified; M54.59 Other low back pain
CPT/HCPCS: 36415; 80053; 80061; 82043; 82172; 82570; 84443; 85025; 86803; G0103